=== PATIENT | female | born 1985 | race Caucasian/White ===

== ENCOUNTER → 2021-08-01 15:51 | Outpatient (BNVA) | payer MEDICAID, SELFPAY | PROVIDERS: Family Provider Nurse Practitioner Family; PCP Nurse Practitioner Family; Visit Provider Family Medicine | DX: J32.9 Chronic sinusitis, unspecified (principal); J18.9 Pneumonia, unspecified organism; Z20.822 Contact with and (suspected) exposure to COVID-19 | CPT/HCPCS: 87400; 87635 ==

== ENCOUNTER 2022-03-27 12:28 | Outpatient (CLI) | payer MEDICAID, SELFPAY ==
--- NOTE | 2022-03-27 12:45 | US_ITS ---
WS: [id number] Complete ABDOMINAL ULTRASOUND HISTORY: R10.9 - Unspecified abdominal pain COMPARISON: None available. Liver: 18.4 cm in length. Liver is slightly enlarged with mild diffuse coarsened echotexture. No bile duct dilatation. Portal Vein: Normal hepatopetal flow with monophasic waveform. Gallbladder: Normally distended with no gallstones, wall thickening or pericholecystic fluid. Pancreas: Normal size pancreas. The tail is obscured by bowel gas. Otherwise negative. CBD: 0.2 cm. Right kidney: 11.3 cm x 7.1 cm x 5.7 cm. No mass, cortical thickening or hydronephrosis. Left kidney: 11.8 cm x 6.3 cm x 6.0 cm. No mass, cortical thickening or hydronephrosis. Spleen: Normal size and echogenicity. Abdominal aorta and IVC are within normal limits. No ascites. US/US abdomen complete* [id number] IMPRESSION: 1. Mild hepatic steatosis and hepatomegaly. 2. No liver mass or duct dilatation. 3. Normal gallbladder. 4. No hydronephrosis.
== END 2022-03-27 12:29 | disposition home or self-care (01) ==
PROVIDERS: PCP Nurse Practitioner; Visit Provider Nurse Practitioner
DX: R10.9 Unspecified abdominal pain (principal); K76.0 Fatty (change of) liver, not elsewhere classified; R16.0 Hepatomegaly, not elsewhere classified
CPT/HCPCS: 76700

== ENCOUNTER → 2022-10-16 11:28 | Outpatient (BNVA) | payer MEDICAID, SELFPAY | PROVIDERS: PCP Nurse Practitioner; Visit Provider Nurse Practitioner Family | DX: R73.9 Hyperglycemia, unspecified (principal) | CPT/HCPCS: 80053; 81000; 83036; 84439; 84443; 85025 ==

== ENCOUNTER → 2023-04-04 09:13 | Outpatient (BNVA) | payer MEDICAID, SELFPAY | PROVIDERS: PCP Nurse Practitioner; Visit Provider Nurse Practitioner Family | DX: Z68.43 Body mass index [BMI] 50.0-59.9, adult (principal); E11.9 Type 2 diabetes mellitus without complications; Z79.899 Other long term (current) drug therapy | CPT/HCPCS: 80053; 81003; 83036 ==

== ENCOUNTER → 2023-07-17 09:10 | Outpatient (BNVA) | payer MEDICAID, SELFPAY | PROVIDERS: PCP Nurse Practitioner Family; Visit Provider Nurse Practitioner Family | DX: Z68.43 Body mass index [BMI] 50.0-59.9, adult (principal); E11.9 Type 2 diabetes mellitus without complications; F43.23 Adjustment disorder with mixed anxiety and depressed mood | CPT/HCPCS: 83036 ==

== ENCOUNTER → 2024-05-29 09:25 | Outpatient (BNVA) | payer MEDICAID, SELFPAY | PROVIDERS: PCP Nurse Practitioner Family; Visit Provider Nurse Practitioner Family | DX: E11.9 Type 2 diabetes mellitus without complications (principal) | CPT/HCPCS: 83036 ==

== ENCOUNTER → 2024-10-15 15:28 | Outpatient (BNVA) | payer MEDICAID, SELFPAY | PROVIDERS: PCP Nurse Practitioner Family; Visit Provider Nurse Practitioner Family | DX: E11.9 Type 2 diabetes mellitus without complications (principal); R10.9 Unspecified abdominal pain; R14.0 Abdominal distension (gaseous); Z79.899 Other long term (current) drug therapy; E55.9 Vitamin D deficiency, unspecified | CPT/HCPCS: 80053; 80061; 81003; 82150; 82306; 83036; 83690; 84443; 85025 ==

== ENCOUNTER 2024-10-31 07:22 | Outpatient (CLI) | payer MEDICAID, SELFPAY ==
--- NOTE | 2024-10-31 07:45 | USR_ITS ---
PROCEDURE INFORMATION: Exam: US Abdomen Complete Exam date and time: 10/31/2024 7:46 AM Age: 39 years old Clinical indication: Abdominal pain; Generalized; Additional info: R10.9 - unspecified abdominal pain. No history of recent trauma or surgery is provided. TECHNIQUE: Imaging protocol: Real-time ultrasound of the abdomen with image documentation. Complete exam. 141image(s) are provided. Other technique: Grayscale, color images are provided. COMPARISON: US abdomen complete* [id number] 03/27/2022 12:48 PM FINDINGS: Liver: The liver measures 20 cm. The hepatic echotexture is slightly heterogeneous, increased. There appear to be some areas of heterogeneity, sparing for example about the gallbladder fossa similar. No contour abnormalities are currently appreciated. Gallbladder: No echogenic calculus, wall thickening or pericholecystic fluid is appereciated. There appears to be some trace gallbladder sludge. No Sonographic Valdez's sign is currently provided. Biliary ducts: No echogenic obstructive calculus or biliary dilatation is appreciated. The common bile duct measures 0.3 cm. Pancreas: The pancreas is somewhat obscured. Right kidney: The right kidney measures 11.4 x 6.4 x 5.2 cm. No echogenic obstructive calculus or hydronephrosis is appreciated. Left kidney: The left kidney measures 11.9 x 6.1 x 5.7 cm. No echogenic obstructive calculus or hydronephrosis is appreciated. Spleen: The spleen measures borderline around 12 x 12 x 3.7 cm. Intraperitoneal space: No significant free fluid collections are appreciated. Aorta: The aorta measures 2.1 cm distally. There is some bowel-gas, penetration limiting artifact. Inferior vena cava: Adjacent IVC is demonstrated. Portal venous: The portal venous velocity is within normal. No other significant interval changes are appreciated. US/US abdomen complete* [id number] IMPRESSION: 1. There is heterogeneous, increased echotexture of the liver overall relatively similar.This can be seen with processes including steatosis as well as hepatic disease related changes. Consider hepatobiliary laboratory profile studies. 2. No interval echogenic obstructive calculus, biliary dilatation or hydronephrosis is appreciated.
== END 2024-10-31 07:23 | disposition home or self-care (01) ==
LOC: RAD 07:23
PROVIDERS: PCP Nurse Practitioner Family; Visit Provider Nurse Practitioner Family
DX: R10.9 Unspecified abdominal pain (principal); R14.0 Abdominal distension (gaseous); K81.9 Cholecystitis, unspecified; R93.2 Abnormal findings on diagnostic imaging of liver and biliary tract
CPT/HCPCS: 76700

== ENCOUNTER → 2024-11-05 11:20 | Outpatient (BNVA) | payer MEDICAID, SELFPAY | PROVIDERS: PCP Nurse Practitioner Family; Visit Provider Nurse Practitioner Family | DX: R10.84 Generalized abdominal pain (principal); R14.0 Abdominal distension (gaseous); D50.9 Iron deficiency anemia, unspecified; R93.5 Abnormal findings on diagnostic imaging of other abdominal regions, including retroperitoneum; D72.828 Other elevated white blood cell count; E11.69 Type 2 diabetes mellitus with other specified complication | CPT/HCPCS: 80053; 80503; 82247; 82248; 82728; 82977; 83550; 85025 ==

== ENCOUNTER → 2024-11-19 10:42 | Outpatient (BNVA) | payer MEDICAID, SELFPAY | PROVIDERS: PCP Nurse Practitioner Family; Visit Provider Nurse Practitioner Family | DX: D53.9 Nutritional anemia, unspecified (principal) | CPT/HCPCS: 82607; 82746; 83921; 85045 ==